=== PATIENT | male | born 1960 | race Hispanic/Latino ===

== ENCOUNTER 2022-06-28 11:44 | Emergency (ER) | payer MEDICARE ==
[2022-06-28 13:05] LABS: #Eosinphils 0.1 10x3/uL (0.0-0.5); #Monocytes 0.3 10x3/uL (0.0-1.1); %Basophils 0.8 % (0.0-2.0); %Eosinophils 2.7 % (0.0-6.0); %Lymphocytes 10.3 % (18.0-47.0); %Monocytes 11.4 % (0.0-10.0); %Neutrophils 74.4 % (40.0-75.0); Hemoglobin 7.7 g/dL (13.5-17.5); Mean Corpuscular HGB CONC 31.6 g/dL (32.0-36.0); Mean Corpuscular Volume 94.9 fl (81.2-95.1); Mean Platelet Volume 9.5 fl (7.4-10.4); Platelet Count 86 10x3/uL (150-450); RBC Distribution Width 17.8 % (11.5-14.5); Red Blood Cell (RBC) Count 2.57 10x6/uL (4.32-5.72); White Blood Cell (WBC) Count 2.6 10x3/uL (3.5-10.5)
[2022-06-28 13:10] LABS: INR-International Normal Ratio 1.2; PTT 31.6 sec (22.0-33.0); Prothrombin Time 13.4 sec (9.5-12.1)
[2022-06-28 13:14] LABS: Acetaminophen Less than 10.0 mcg/mL (10.0-30.0); Alcohol Less than 10 mg/dL (Less than 10); Salicylate Less than 8.0 mg/dL (15.0-30.0)
[2022-06-28 13:38] LABS: CKMB 2.3 ng/mL (0-6.6)
[2022-06-28 13:50] LABS: ALT (SGPT) 11 U/L (8-55); AST (SGOT) 19 U/L (5-34); Albumin 1.9 g/dL (3.4-4.8); Alkaline Phosphatase 133 U/L (40-110); Anion Gap 15 mmol/L (10-20); BUN (Urea Nitrogen) 44 mg/dL (8.4-25.7); Bilirubin, Total 1.1 mg/dL (0.2-1.2); Calc. Creatinine Clearance 0 mL/min (70-130); Carbon Dioxide 28 mmol/L (23-31); Chloride 98 mmol/L (98-107); Estimated GFR 11; Globulin 7.2 g/dL (2.4-3.5); Glucose 108 mg/dL (80-115); Potassium 3.8 mmol/L (3.5-5.1); Protein, Total 9.1 g/dL (5.8-8.1); Sodium 137 mmol/L (136-145)
== END 2022-06-28 15:07 | disposition home or self-care (01) ==
LOC: CSHERS 11:44
DX: R41.0 Disorientation, unspecified (principal); K70.30 Alcoholic cirrhosis of liver without ascites; E11.22 Type 2 diabetes mellitus with diabetic chronic kidney disease; N18.6 End stage renal disease; I12.9 Hypertensive chronic kidney disease with stage 1 through stage 4 chronic kidney disease, or unspecified chronic kidney disease; Z99.2 Dependence on renal dialysis
CPT/HCPCS: 36415; 70450; 71045; 80053; 80307; 82140; 82553; 84484; 85025; 85610; 85730; 93005

== ENCOUNTER 2022-07-03 14:19 | Inpatient (IN) | payer MEDICARE ==
[2022-07-03 15:23] LABS: #Eosinphils 0.1 10x3/uL (0.0-0.5); #Monocytes 0.4 10x3/uL (0.0-1.1); #Neutrophils 2.1 10x3/uL (1.5-8.4); %Basophils 0.7 % (0.0-2.0); %Eosinophils 3.4 % (0.0-6.0); %Lymphocytes 11.5 % (18.0-47.0); %Monocytes 12.8 % (0.0-10.0); %Neutrophils 70.9 % (40.0-75.0); Hemoglobin 7.8 g/dL (13.5-17.5); Mean Corpuscular HGB CONC 32.8 g/dL (32.0-36.0); Mean Corpuscular Hemoglobin 30.7 pg (27.0-33.0); Mean Corpuscular Volume 93.7 fl (81.2-95.1); Mean Platelet Volume 9.5 fl (7.4-10.4); Platelet Count 82 10x3/uL (150-450); RBC Distribution Width 17.7 % (11.5-14.5); Red Blood Cell (RBC) Count 2.54 10x6/uL (4.32-5.72); White Blood Cell (WBC) Count 2.9 10x3/uL (3.5-10.5)
[2022-07-03 15:32] LABS: ALT (SGPT) 9 U/L (8-55); AST (SGOT) 21 U/L (5-34); Albumin 1.9 g/dL (3.4-4.8); Alkaline Phosphatase 150 U/L (40-110); Anion Gap 12 mmol/L (10-20); BUN (Urea Nitrogen) 17 mg/dL (8.4-25.7); Bilirubin, Total 1.1 mg/dL (0.2-1.2); Calc. Creatinine Clearance 0 mL/min (70-130); Calcium 8.6 mg/dL (7.8-10.44); Carbon Dioxide 29 mmol/L (23-31); Chloride 97 mmol/L (98-107); Estimated GFR 27; Globulin 7.3 g/dL (2.4-3.5); Glucose 126 mg/dL (80-115); Lipase 32 U/L (8-78); Potassium 2.8 mmol/L (3.5-5.1); Protein, Total 9.2 g/dL (5.8-8.1); Sodium 135 mmol/L (136-145)
[2022-07-03] MEDS ORDERED: Bacitracin 1 PK ONE (18:27)
[2022-07-03] MEDS ORDERED: Dextrose 50% Abboject 50 ML SYRINGE SLOW IVP PRN (19:35)
[2022-07-03] MEDS ORDERED: Calcium Carbonate 500 MG ChewTAB PO PRN (19:35)
[2022-07-03] MEDS ORDERED: Acetaminophen 325 MG TAB PO PRN (19:35)
[2022-07-03] MEDS ORDERED: Guaifenesin DM 100-10/5 ML UDCUP PO PRN (19:35)
[2022-07-03] MEDS ORDERED: Ondansetron PF 4 MG/2 ML Vial IVP PRN (19:35)
[2022-07-03] MEDS ORDERED: Dextrose 5% in Water 1,000 ML IV PRN (19:35)
[2022-07-03] MEDS ORDERED: Potassium Chloride 20 MEQ TAB PO SCH (19:45)
[2022-07-03] MEDS ORDERED: Rifaximin 550 MG TAB PO SCH (21:45)
[2022-07-03] MEDS ORDERED: Propranolol 10 MG TAB PO SCH (21:45)
[2022-07-03 23:56] LABS: SARS-CoV-2 NAA Rapid Test Not Detected (NotDetected)
[2022-07-03] MEDS ORDERED: Potassium Chloride 20 MEQ/100 ML PREMIX BAG ONE (23:59)
[2022-07-03] MEDS ORDERED: Potassium Chloride 20 MEQ in Premix Bag 1 BAG IVPB SCH (23:59)
[2022-07-04] MEDS: Albumin 25% 25 GM/100 ML BOT IVPB SCH ×2 (00:41→05:45)
[2022-07-04 05:42] LABS: Hemoglobin 7.3 g/dL (13.5-17.5); Mean Corpuscular HGB CONC 32.9 g/dL (32.0-36.0); Mean Corpuscular Hemoglobin 30.8 pg (27.0-33.0); Mean Corpuscular Volume 93.7 fl (81.2-95.1); Mean Platelet Volume 9.6 fl (7.4-10.4); Platelet Count 63 10x3/uL (150-450); RBC Distribution Width 17.4 % (11.5-14.5); Red Blood Cell (RBC) Count 2.37 10x6/uL (4.32-5.72); White Blood Cell (WBC) Count 3.4 10x3/uL (3.5-10.5)
[2022-07-04 05:54] LABS: ALT (SGPT) 10 U/L (8-55); AST (SGOT) 17 U/L (5-34); Albumin 2.2 g/dL (3.4-4.8); Alkaline Phosphatase 127 U/L (40-110); Anion Gap 12 mmol/L (10-20); BUN (Urea Nitrogen) 25 mg/dL (8.4-25.7); Bilirubin, Total 1.1 mg/dL (0.2-1.2); Calc. Creatinine Clearance 0 mL/min (70-130); Calcium 9.3 mg/dL (7.8-10.44); Carbon Dioxide 30 mmol/L (23-31); Chloride 101 mmol/L (98-107); Estimated GFR 17; Globulin 6.3 g/dL (2.4-3.5); Glucose 122 mg/dL (80-115); Potassium 4.1 mmol/L (3.5-5.1); Protein, Total 8.5 g/dL (5.8-8.1); Sodium 139 mmol/L (136-145)
[2022-07-04 06:21] LABS: Thyroid Stimulating Hormone 4.3041 uIU/mL (0.35-4.94)
[2022-07-04 06:22] LABS: MDiff Complete? YES; Platelet Morphology Comment Appears Decreased
[2022-07-04 06:25] LABS: Band 1 % (5-11); Eosinophils 1 % (0-10); Lymphocytes 10 % (21-51); Monocytes 14 % (0-10); Neutrophil 73 % (42-75)
[2022-07-04] MEDS: Multivitamin W/ Minerals 1 TAB PO SCH (14:20)
[2022-07-04] MEDS: Folic Acid/Vit B Comp W-C PO SCH (14:20)
[2022-07-04 14:33] VITALS: BMI 17.4
[2022-07-04] MEDS: Rifaximin 550 MG TAB PO SCH ×2 (15:44→21:01)
[2022-07-04] MEDS: Propranolol 10 MG TAB PO SCH ×2 (15:44→21:15)
[2022-07-04] MEDS: EPOETIN ALFA-EPBX (ESRD) 4,000 UNIT/ML VIAL SC SCH (15:51)
[2022-07-05] MEDS: Multivitamin W/ Minerals 1 TAB PO SCH (09:08)
[2022-07-05] MEDS: Folic Acid/Vit B Comp W-C PO SCH (09:08)
[2022-07-05] MEDS: Propranolol 10 MG TAB PO SCH ×2 (09:08→20:46)
[2022-07-05] MEDS: Rifaximin 550 MG TAB PO SCH ×2 (09:08→20:46)
[2022-07-05 11:44] LABS: HBSAg Index 0.18 S/CO (0-0.99); Hep B Surf Ag Non-Reactive S/CO (NonReactive)
[2022-07-06 04:17] LABS: #Eosinphils 0.1 10x3/uL (0.0-0.5); #Monocytes 0.5 10x3/uL (0.0-1.1); #Neutrophils 2.4 10x3/uL (1.5-8.4); %Basophils 0.6 % (0.0-2.0); %Eosinophils 2.8 % (0.0-6.0); %Monocytes 14.2 % (0.0-10.0); %Neutrophils 67.4 % (40.0-75.0); Hemoglobin 6.7 g/dL (13.5-17.5); Mean Corpuscular HGB CONC 32.1 g/dL (32.0-36.0); Mean Corpuscular Hemoglobin 30.6 pg (27.0-33.0); Mean Corpuscular Volume 95.4 fl (81.2-95.1); Mean Platelet Volume 9.6 fl (7.4-10.4); Platelet Count 74 10x3/uL (150-450); RBC Distribution Width 17.2 % (11.5-14.5); Red Blood Cell (RBC) Count 2.19 10x6/uL (4.32-5.72); White Blood Cell (WBC) Count 3.5 10x3/uL (3.5-10.5)
[2022-07-06 04:22] LABS: ALT (SGPT) 8 U/L (8-55); AST (SGOT) 23 U/L (5-34); Albumin 2.1 g/dL (3.4-4.8); Alkaline Phosphatase 140 U/L (40-110); Anion Gap 10 mmol/L (10-20); BUN (Urea Nitrogen) 17 mg/dL (8.4-25.7); Bilirubin, Direct 0.5 mg/dL (0.1-0.3); Bilirubin, Total 0.9 mg/dL (0.2-1.2); Calc. Creatinine Clearance 16 mL/min (70-130); Carbon Dioxide 29 mmol/L (23-31); Chloride 100 mmol/L (98-107); Estimated GFR 24; Globulin 6.4 g/dL (2.4-3.5); Glucose 105 mg/dL (80-115); Protein, Total 8.5 g/dL (5.8-8.1); Sodium 135 mmol/L (136-145)
[2022-07-06] MEDS: Propranolol 10 MG TAB PO SCH ×2 (09:11→21:28)
[2022-07-06] MEDS: Multivitamin W/ Minerals 1 TAB PO SCH (09:12)
[2022-07-06] MEDS: Rifaximin 550 MG TAB PO SCH ×2 (09:12→21:28)
[2022-07-06] MEDS: Folic Acid/Vit B Comp W-C PO SCH (09:12)
[2022-07-07] MEDS: Rifaximin 550 MG TAB PO SCH ×2 (08:13→20:26)
[2022-07-07] MEDS: Multivitamin W/ Minerals 1 TAB PO SCH (08:13)
[2022-07-07] MEDS: Folic Acid/Vit B Comp W-C PO SCH (08:15)
[2022-07-07] MEDS: Propranolol 10 MG TAB PO SCH ×2 (08:15→20:26)
[2022-07-08 05:00] LABS: Anion Gap 9 mmol/L (10-20); BUN (Urea Nitrogen) 18 mg/dL (8.4-25.7); Calc. Creatinine Clearance 19 mL/min (70-130); Calcium 9.2 mg/dL (7.8-10.44); Carbon Dioxide 27 mmol/L (23-31); Chloride 99 mmol/L (98-107); Estimated GFR 30; Glucose 189 mg/dL (80-115); Potassium 3.8 mmol/L (3.5-5.1); Sodium 131 mmol/L (136-145)
[2022-07-08 05:21] LABS: #Eosinphils 0.2 10x3/uL (0.0-0.5); #Monocytes 0.5 10x3/uL (0.0-1.1); #Neutrophils 2.7 10x3/uL (1.5-8.4); %Basophils 0.8 % (0.0-2.0); %Eosinophils 4.1 % (0.0-6.0); %Lymphocytes 9.8 % (18.0-47.0); %Monocytes 13.3 % (0.0-10.0); %Neutrophils 71.7 % (40.0-75.0); Hemoglobin 8.2 g/dL (13.5-17.5); Mean Corpuscular HGB CONC 32.3 g/dL (32.0-36.0); Mean Corpuscular Hemoglobin 31.1 pg (27.0-33.0); Mean Corpuscular Volume 96.2 fl (81.2-95.1); Mean Platelet Volume 10.1 fl (7.4-10.4); Platelet Count 74 10x3/uL (150-450); RBC Distribution Width 16.7 % (11.5-14.5); Red Blood Cell (RBC) Count 2.64 10x6/uL (4.32-5.72); White Blood Cell (WBC) Count 3.7 10x3/uL (3.5-10.5)
[2022-07-08] MEDS: Propranolol 10 MG TAB PO SCH ×2 (08:36→21:50)
[2022-07-08] MEDS: Folic Acid/Vit B Comp W-C PO SCH (08:36)
[2022-07-08] MEDS: Multivitamin W/ Minerals 1 TAB PO SCH (08:36)
[2022-07-08] MEDS: Rifaximin 550 MG TAB PO SCH ×2 (08:36→21:50)
[2022-07-08] MEDS ORDERED: Cyanocobalamin 1000 MCG/ML VIAL IM SCH (19:15)
[2022-07-09 05:03] LABS: #Eosinphils 0.2 10x3/uL (0.0-0.5); #Monocytes 0.5 10x3/uL (0.0-1.1); #Neutrophils 2.6 10x3/uL (1.5-8.4); %Basophils 0.8 % (0.0-2.0); %Eosinophils 4.6 % (0.0-6.0); %Lymphocytes 11.1 % (18.0-47.0); %Neutrophils 70.2 % (40.0-75.0); Hemoglobin 7.7 g/dL (13.5-17.5); Mean Corpuscular Hemoglobin 30.4 pg (27.0-33.0); Mean Corpuscular Volume 95.3 fl (81.2-95.1); Mean Platelet Volume 10.2 fl (7.4-10.4); Platelet Count 74 10x3/uL (150-450); RBC Distribution Width 16.7 % (11.5-14.5); Red Blood Cell (RBC) Count 2.53 10x6/uL (4.32-5.72); White Blood Cell (WBC) Count 3.7 10x3/uL (3.5-10.5)
[2022-07-09 05:29] LABS: Anion Gap 13 mmol/L (10-20); BUN (Urea Nitrogen) 38 mg/dL (8.4-25.7); Calc. Creatinine Clearance 11 mL/min (70-130); Calcium 10.1 mg/dL (7.8-10.44); Carbon Dioxide 25 mmol/L (23-31); Chloride 99 mmol/L (98-107); Estimated GFR 15; Glucose 104 mg/dL (80-115); Potassium 4.6 mmol/L (3.5-5.1); Sodium 132 mmol/L (136-145)
[2022-07-09] MEDS: Folic Acid/Vit B Comp W-C PO SCH (08:48)
[2022-07-09] MEDS: Thiamine 100 MG TAB PO SCH (08:48)
[2022-07-09] MEDS: Cyanocobalamin 1000 MCG/ML VIAL IM SCH (08:48)
[2022-07-09] MEDS: Rifaximin 550 MG TAB PO SCH ×2 (08:49→21:01)
[2022-07-09] MEDS: Multivitamin W/ Minerals 1 TAB PO SCH (08:49)
[2022-07-09] MEDS: Propranolol 10 MG TAB PO SCH ×2 (08:49→21:01)
[2022-07-09] MEDS ORDERED: Albuterol HFA (OR) 200 PUFF INH ONE (11:27)
[2022-07-10] MEDS: Multivitamin W/ Minerals 1 TAB PO SCH (08:53)
[2022-07-10] MEDS: Propranolol 10 MG TAB PO SCH ×2 (08:53→22:53)
[2022-07-10] MEDS: Thiamine 100 MG TAB PO SCH (08:53)
[2022-07-10] MEDS: Folic Acid/Vit B Comp W-C PO SCH (08:54)
[2022-07-10] MEDS: Rifaximin 550 MG TAB PO SCH ×2 (08:54→22:53)
[2022-07-10] MEDS: Cyanocobalamin 1000 MCG/ML VIAL IM SCH (10:55)
[2022-07-11 04:54] LABS: #Eosinphils 0.1 10x3/uL (0.0-0.5); #Monocytes 0.4 10x3/uL (0.0-1.1); #Neutrophils 2.5 10x3/uL (1.5-8.4); %Basophils 0.6 % (0.0-2.0); %Eosinophils 2.9 % (0.0-6.0); %Lymphocytes 8.8 % (18.0-47.0); %Monocytes 12.7 % (0.0-10.0); %Neutrophils 74.4 % (40.0-75.0); Hemoglobin 8.6 g/dL (13.5-17.5); Mean Corpuscular HGB CONC 33.3 g/dL (32.0-36.0); Mean Corpuscular Volume 93.1 fl (81.2-95.1); Mean Platelet Volume 10.3 fl (7.4-10.4); Platelet Count 70 10x3/uL (150-450); RBC Distribution Width 16.2 % (11.5-14.5); Red Blood Cell (RBC) Count 2.77 10x6/uL (4.32-5.72); White Blood Cell (WBC) Count 3.4 10x3/uL (3.5-10.5)
[2022-07-11 05:02] LABS: Anion Gap 14 mmol/L (10-20); BUN (Urea Nitrogen) 23 mg/dL (8.4-25.7); Calc. Creatinine Clearance 16 mL/min (70-130); Calcium 9.7 mg/dL (7.8-10.44); Carbon Dioxide 25 mmol/L (23-31); Chloride 101 mmol/L (98-107); Estimated GFR 24; Glucose 106 mg/dL (80-115); Potassium 4.1 mmol/L (3.5-5.1); Sodium 136 mmol/L (136-145)
[2022-07-11] MEDS: Cyanocobalamin 1000 MCG/ML VIAL IM SCH (08:59)
[2022-07-11] MEDS: Multivitamin W/ Minerals 1 TAB PO SCH (09:00)
[2022-07-11] MEDS: Rifaximin 550 MG TAB PO SCH ×2 (09:00→22:06)
[2022-07-11] MEDS: Propranolol 10 MG TAB PO SCH ×2 (09:00→22:06)
[2022-07-11] MEDS: Folic Acid/Vit B Comp W-C PO SCH (09:00)
[2022-07-11] MEDS: Thiamine 100 MG TAB PO SCH (09:00)
[2022-07-11] MEDS: EPOETIN ALFA-EPBX (ESRD) 4,000 UNIT/ML VIAL SC SCH (16:17)
[2022-07-11] MEDS ORDERED: EPOETIN ALFA-EPBX (ESRD) 10,000 UNIT/ML VIAL SC SCH (21:00)
[2022-07-12 04:50] LABS: #Eosinphils 0.1 10x3/uL (0.0-0.5); #Monocytes 0.5 10x3/uL (0.0-1.1); #Neutrophils 2.3 10x3/uL (1.5-8.4); %Basophils 0.6 % (0.0-2.0); %Eosinophils 3.8 % (0.0-6.0); %Lymphocytes 11.8 % (18.0-47.0); %Monocytes 14.5 % (0.0-10.0); Anion Gap 14 mmol/L (10-20); BUN (Urea Nitrogen) 39 mg/dL (8.4-25.7); Calc. Creatinine Clearance 11 mL/min (70-130); Calcium 10.4 mg/dL (7.8-10.44); Carbon Dioxide 26 mmol/L (23-31); Chloride 101 mmol/L (98-107); Estimated GFR 15; Glucose 92 mg/dL (80-115); Hemoglobin 7.7 g/dL (13.5-17.5); Mean Corpuscular Hemoglobin 31.7 pg (27.0-33.0); Mean Corpuscular Volume 95.9 fl (81.2-95.1); Mean Platelet Volume 10.3 fl (7.4-10.4); Platelet Count 72 10x3/uL (150-450); Potassium 4.6 mmol/L (3.5-5.1); RBC Distribution Width 16.4 % (11.5-14.5); Red Blood Cell (RBC) Count 2.43 10x6/uL (4.32-5.72); Sodium 136 mmol/L (136-145); White Blood Cell (WBC) Count 3.4 10x3/uL (3.5-10.5)
[2022-07-12] MEDS: Folic Acid/Vit B Comp W-C PO SCH (09:16)
[2022-07-12] MEDS: Thiamine 100 MG TAB PO SCH (09:16)
[2022-07-12] MEDS: Multivitamin W/ Minerals 1 TAB PO SCH (09:16)
[2022-07-12] MEDS: Rifaximin 550 MG TAB PO SCH ×2 (09:16→21:29)
[2022-07-12] MEDS: Propranolol 10 MG TAB PO SCH ×2 (09:16→21:29)
[2022-07-12] MEDS: Cyanocobalamin 1000 MCG/ML VIAL IM SCH (09:17)
[2022-07-13 04:42] LABS: #Eosinphils 0.1 10x3/uL (0.0-0.5); #Monocytes 0.5 10x3/uL (0.0-1.1); #Neutrophils 2.4 10x3/uL (1.5-8.4); %Basophils 0.6 % (0.0-2.0); %Eosinophils 3.8 % (0.0-6.0); %Lymphocytes 12.2 % (18.0-47.0); %Monocytes 14.2 % (0.0-10.0); %Neutrophils 68.9 % (40.0-75.0); Hemoglobin 7.8 g/dL (13.5-17.5); Mean Corpuscular HGB CONC 33.1 g/dL (32.0-36.0); Mean Corpuscular Volume 93.7 fl (81.2-95.1); Mean Platelet Volume 10.1 fl (7.4-10.4); Platelet Count 76 10x3/uL (150-450); Red Blood Cell (RBC) Count 2.52 10x6/uL (4.32-5.72); White Blood Cell (WBC) Count 3.5 10x3/uL (3.5-10.5)
[2022-07-13 04:51] LABS: Anion Gap 10 mmol/L (10-20); BUN (Urea Nitrogen) 21 mg/dL (8.4-25.7); Calc. Creatinine Clearance 14 mL/min (70-130); Calcium 9.8 mg/dL (7.8-10.44); Carbon Dioxide 28 mmol/L (23-31); Chloride 97 mmol/L (98-107); Estimated GFR 20; Glucose 111 mg/dL (80-115); Potassium 3.7 mmol/L (3.5-5.1); Sodium 131 mmol/L (136-145)
[2022-07-13 10:15] LABS: A/G Ratio 0.4 (0.7-1.7); Albumin 2.2 g/dL (2.9-4.4); Alpha 1 0.2 g/dL (0.0-0.4); Alpha 2 0.4 g/dL (0.4-1.0); Gamma 4.2 g/dL (0.4-1.8); Globulin, Total 5.9 g/dL (2.2-3.9); M-Spike Not Observed g/dL (Not Observed); Protein Electrophoresis Intrp Note: (.)
[2022-07-13] MEDS: Multivitamin W/ Minerals 1 TAB PO SCH (10:48)
[2022-07-13] MEDS: Folic Acid/Vit B Comp W-C PO SCH (10:48)
[2022-07-13] MEDS: Cyanocobalamin (Vitamin B-12) 1,000 MCG TAB PO SCH (10:48)
[2022-07-13] MEDS: Rifaximin 550 MG TAB PO SCH ×2 (10:48→19:43)
[2022-07-13] MEDS: Thiamine 100 MG TAB PO SCH (10:48)
[2022-07-13] MEDS: Propranolol 10 MG TAB PO SCH ×2 (10:48→19:43)
[2022-07-14 04:56] LABS: Anion Gap 12 mmol/L (10-20); BUN (Urea Nitrogen) 37 mg/dL (8.4-25.7); Calc. Creatinine Clearance 9 mL/min (70-130); Calcium 10.4 mg/dL (7.8-10.44); Carbon Dioxide 28 mmol/L (23-31); Chloride 98 mmol/L (98-107); Estimated GFR 13; Glucose 134 mg/dL (80-115); Potassium 3.9 mmol/L (3.5-5.1); Sodium 134 mmol/L (136-145)
[2022-07-14 05:06] LABS: #Eosinphils 0.2 10x3/uL (0.0-0.5); #Monocytes 0.6 10x3/uL (0.0-1.1); #Neutrophils 2.8 10x3/uL (1.5-8.4); %Basophils 0.5 % (0.0-2.0); %Eosinophils 5.2 % (0.0-6.0); %Lymphocytes 11.1 % (18.0-47.0); %Monocytes 13.6 % (0.0-10.0); %Neutrophils 69.4 % (40.0-75.0); Hemoglobin 7.4 g/dL (13.5-17.5); Mean Corpuscular HGB CONC 32.9 g/dL (32.0-36.0); Mean Corpuscular Hemoglobin 31.1 pg (27.0-33.0); Mean Corpuscular Volume 94.5 fl (81.2-95.1); Mean Platelet Volume 10.2 fl (7.4-10.4); Platelet Count 71 10x3/uL (150-450); Red Blood Cell (RBC) Count 2.38 10x6/uL (4.32-5.72)
[2022-07-14] MEDS: Propranolol 10 MG TAB PO SCH ×2 (09:14→21:03)
[2022-07-14] MEDS: Folic Acid/Vit B Comp W-C PO SCH (09:14)
[2022-07-14] MEDS: Multivitamin W/ Minerals 1 TAB PO SCH (09:14)
[2022-07-14] MEDS: Thiamine 100 MG TAB PO SCH (09:14)
[2022-07-14] MEDS: Rifaximin 550 MG TAB PO SCH ×2 (09:14→21:03)
[2022-07-14] MEDS: Cyanocobalamin (Vitamin B-12) 1,000 MCG TAB PO SCH (09:14)
[2022-07-15] MEDS: Rifaximin 550 MG TAB PO SCH (09:25)
[2022-07-15] MEDS: Thiamine 100 MG TAB PO SCH (09:25)
[2022-07-15] MEDS: Folic Acid/Vit B Comp W-C PO SCH (09:25)
[2022-07-15] MEDS: Cyanocobalamin (Vitamin B-12) 1,000 MCG TAB PO SCH (09:25)
[2022-07-15] MEDS: Multivitamin W/ Minerals 1 TAB PO SCH (09:26)
[2022-07-15] MEDS: Propranolol 10 MG TAB PO SCH (09:26)
[2022-07-15 12:35] VITALS: BP 128/60; TEMP 99.5
[2022-07-18] MEDS ORDERED: EPOETIN ALFA-EPBX (ESRD) 10,000 UNIT/ML VIAL SC SCH (12:00)
[2022-07-18] MEDS ORDERED: EPOETIN ALFA-EPBX (ESRD) 4,000 UNIT/ML VIAL SC SCH (12:00)
== END 2022-07-15 13:20 | disposition home health service (06) | DRG 441 ==
LOC: CSHERS 14:19 → CSHERHOLD 21:35 → OBSVTOIN 21:35 → CSHTELE 07-04 14:01
PROVIDERS: ADMIT Student in an Organized Health Care Education/Training Program; ATTEND Hospitalist
PROC: 30233N1 Transfusion of Nonautologous Red Blood Cells into Peripheral Vein, Percutaneous Approach (ICD-10-PCS; principal; 2022-07-06)
DX: K72.00 Acute and subacute hepatic failure without coma (principal); E43 Unspecified severe protein-calorie malnutrition; N18.6 End stage renal disease; G92.8 Other toxic encephalopathy; I12.0 Hypertensive chronic kidney disease with stage 5 chronic kidney disease or end stage renal disease; D61.818 Other pancytopenia; R64 Cachexia; Z68.1 Body mass index [BMI] 19.9 or less, adult; R18.8 Other ascites; K76.6 Portal hypertension; Z20.822 Contact with and (suspected) exposure to COVID-19; K75.81 Nonalcoholic steatohepatitis (NASH); E11.22 Type 2 diabetes mellitus with diabetic chronic kidney disease; I44.7 Left bundle-branch block, unspecified; R62.7 Adult failure to thrive; E87.6 Hypokalemia; E53.8 Deficiency of other specified B group vitamins; K74.69 Other cirrhosis of liver; M81.0 Age-related osteoporosis without current pathological fracture; D63.1 Anemia in chronic kidney disease; K40.90 Unilateral inguinal hernia, without obstruction or gangrene, not specified as recurrent; Z99.2 Dependence on renal dialysis; Z76.82 Awaiting organ transplant status; Z91.018 Allergy to other foods; Z79.899 Other long term (current) drug therapy; Z90.5 Acquired absence of kidney; Z89.422 Acquired absence of other left toe(s); Z83.3 Family history of diabetes mellitus; Z98.41 Cataract extraction status, right eye; Z98.42 Cataract extraction status, left eye
CPT/HCPCS: 36415; 36416; 36430; 70450; 70551; 71045; 72192; 76705; 80048; 80053; 82105; 82140; 82248; 82553; 82607; 83605; 83690; 83735; 83880; 84155; 84165; 84425; 84443; 84484; 85025; 86850; 86900; 86901; 87340; 87811; 90935; 93005; 94760; 97139; G0257; J3420; J3480; P9016; P9047; Q5105; U0002

== ENCOUNTER 2023-08-03 10:49 | Inpatient (IN) | payer MEDICARE ==
[2023-08-03 12:05] LABS: ALT (SGPT) 16 U/L (8-55); AST (SGOT) 29 U/L (5-34); Albumin 2.8 g/dL (3.4-4.8); Alkaline Phosphatase 215 U/L (40-110); Anion Gap 10 mmol/L (10-20); BUN (Urea Nitrogen) 13 mg/dL (8.4-25.7); Bilirubin, Total 1.2 mg/dL (0.2-1.2); Calc. Creatinine Clearance 0 mL/min (70-130); Calcium 8.2 mg/dL (7.8-10.44); Carbon Dioxide 34 mmol/L (23-31); Chloride 100 mmol/L (98-107); Estimated GFR 21; Globulin 5.1 g/dL (2.4-3.5); Glucose 138 mg/dL (80-115); Magnesium 2.2 mg/dL (1.6-2.6); Potassium 3.2 mmol/L (3.5-5.1); Protein, Total 7.9 g/dL (5.8-8.1); Sodium 141 mmol/L (136-145)
[2023-08-03 12:14] LABS: #Eosinphils 0.1 10x3/uL (0.0-0.5); #Monocytes 0.4 10x3/uL (0.0-1.1); #Neutrophils 1.4 10x3/uL (1.5-8.4); %Basophils 0.4 % (0.0-2.0); %Eosinophils 3.9 % (0.0-6.0); %Lymphocytes 17.5 % (18.0-47.0); %Monocytes 17.9 % (0.0-10.0); %Neutrophils 59.9 % (40.0-75.0); Hematocrit 29.1 % (38.8-50.0); Hemoglobin 9.3 g/dL (13.5-17.5); Mean Corpuscular Hemoglobin 28.4 pg (27.0-33.0); Mean Corpuscular Volume 88.7 fl (81.2-95.1); Platelet Count 62 10x3/uL (150-450); RBC Distribution Width 17.2 % (11.5-14.5); Red Blood Cell (RBC) Count 3.28 10x6/uL (4.32-5.72); White Blood Cell (WBC) Count 2.3 10x3/uL (3.5-10.5)
[2023-08-03] MEDS ORDERED: Ondansetron ODT 4 MG TAB PO PRN (12:43)
[2023-08-03] MEDS ORDERED: Acetaminophen 325 MG TAB PO PRN (12:43)
[2023-08-03] MEDS ORDERED: Ondansetron PF 4 MG/2 ML Vial IVP PRN (12:43)
[2023-08-03] MEDS ORDERED: EPOETIN ALFA-EPBX (ESRD) 10,000 UNITS/ML VIAL SC SCH (13:00)
[2023-08-03] MEDS ORDERED: Lactulose 20 GM (30 mL) UDCUP ONE (13:03)
[2023-08-03] MEDS ORDERED: HumaLOG 300 UNITS/3 ML VIAL SC PRN ×2 (13:38)
[2023-08-03] MEDS ORDERED: Dextrose 50% Abboject 50 ML SYRINGE SLOW IVP PRN (13:38)
[2023-08-03] MEDS ORDERED: Glucagon 1 MG/ML KIT IM PRN (13:38)
[2023-08-03] MEDS ORDERED: Dextrose 5% in Water 1,000 ML IV PRN (13:38)
[2023-08-03] MEDS ORDERED: Potassium Chloride 20 MEQ in Premix 1 BAG IVPB SCH ×2 (14:30→15:45)
[2023-08-03] MEDS: Lactulose 20 GM (30 mL) UDCUP PO SCH ×3 (15:03→23:15)
[2023-08-03 21:29] VITALS: BMI 21.2
[2023-08-03] MEDS: Rifaximin 550 MG TAB PO SCH (23:15)
[2023-08-04 04:01] LABS: ALT (SGPT) 13 U/L (8-55); AST (SGOT) 30 U/L (5-34); Albumin 2.3 g/dL (3.4-4.8); Alkaline Phosphatase 203 U/L (40-110); Anion Gap 18 mmol/L (10-20); BUN (Urea Nitrogen) 22 mg/dL (8.4-25.7); Bilirubin, Total 0.9 mg/dL (0.2-1.2); Calc. Creatinine Clearance 12 mL/min (70-130); Calcium 8.6 mg/dL (7.8-10.44); Carbon Dioxide 21 mmol/L (23-31); Chloride 104 mmol/L (98-107); Estimated GFR 12; Glucose 162 mg/dL (80-115); Potassium 3.8 mmol/L (3.5-5.1); Protein, Total 7.3 g/dL (5.8-8.1); Sodium 139 mmol/L (136-145)
[2023-08-04] MEDS: Lactulose 20 GM (30 mL) UDCUP PO SCH ×4 (08:23→21:17)
[2023-08-04] MEDS: Rifaximin 550 MG TAB PO SCH ×2 (08:23→21:15)
[2023-08-04] MEDS ORDERED: Epoetin (ESRD) 10,000 UNITS/ML VIAL SC SCH (09:00)
[2023-08-05 04:30] LABS: ALT (SGPT) 13 U/L (8-55); AST (SGOT) 31 U/L (5-34); Albumin 2.4 g/dL (3.4-4.8); Alkaline Phosphatase 219 U/L (40-110); Anion Gap 16 mmol/L (10-20); BUN (Urea Nitrogen) 31 mg/dL (8.4-25.7); Bilirubin, Total 0.8 mg/dL (0.2-1.2); Calc. Creatinine Clearance 9 mL/min (70-130); Calcium 8.3 mg/dL (7.8-10.44); Carbon Dioxide 22 mmol/L (23-31); Chloride 104 mmol/L (98-107); Estimated GFR 8; Globulin 4.6 g/dL (2.4-3.5); Glucose 161 mg/dL (80-115); Magnesium 2.3 mg/dL (1.6-2.6); Potassium 3.5 mmol/L (3.5-5.1); Sodium 138 mmol/L (136-145)
[2023-08-05 04:40] LABS: #Eosinphils 0.1 10x3/uL (0.0-0.5); #Monocytes 0.4 10x3/uL (0.0-1.1); #Neutrophils 1.2 10x3/uL (1.5-8.4); %Basophils 0.5 % (0.0-2.0); %Eosinophils 5.9 % (0.0-6.0); %Lymphocytes 18.1 % (18.0-47.0); %Monocytes 17.6 % (0.0-10.0); %Neutrophils 57.9 % (40.0-75.0); Hematocrit 26.4 % (38.8-50.0); Hemoglobin 8.4 g/dL (13.5-17.5); Mean Corpuscular HGB CONC 31.8 g/dL (32.0-36.0); Mean Corpuscular Hemoglobin 28.6 pg (27.0-33.0); Mean Corpuscular Volume 89.8 fl (81.2-95.1); Mean Platelet Volume 10.5 fl (7.4-10.4); Platelet Count 52 10x3/uL (150-450); RBC Distribution Width 16.9 % (11.5-14.5); Red Blood Cell (RBC) Count 2.94 10x6/uL (4.32-5.72)
[2023-08-05] MEDS: Rifaximin 550 MG TAB PO SCH (08:20)
[2023-08-05] MEDS: Lactulose 20 GM (30 mL) UDCUP PO SCH ×2 (08:20→14:37)
[2023-08-05 14:01] VITALS: TEMP 97.9
[2023-08-05 14:46] VITALS: BP 97/60
[2023-08-06] MEDS ORDERED: Midodrine HCl 5 MG TAB PO SCH (09:00)
== END 2023-08-05 14:45 | disposition home or self-care (01) | DRG 441 ==
LOC: CSHERS 10:49 → CSHTELE 12:43 → OBSVTOIN 08-05 11:07
PROVIDERS: ADMIT Internal Medicine; ATTEND Family Medicine
DX: K76.82 Hepatic encephalopathy (principal); N18.6 End stage renal disease; I12.0 Hypertensive chronic kidney disease with stage 5 chronic kidney disease or end stage renal disease; D61.818 Other pancytopenia; K74.60 Unspecified cirrhosis of liver; E87.6 Hypokalemia; E11.22 Type 2 diabetes mellitus with diabetic chronic kidney disease; M81.0 Age-related osteoporosis without current pathological fracture; Z98.890 Other specified postprocedural states; Z91.018 Allergy to other foods; Z99.2 Dependence on renal dialysis; Z91.09 Other allergy status, other than to drugs and biological substances; Z79.899 Other long term (current) drug therapy
CPT/HCPCS: 36415; 36416; 70450; 71045; 80053; 82140; 83605; 83735; 84484; 85025; 93005; 94760; 94762; 96374; G0378; J3480